=== PATIENT | male | born 1955 | race Caucasian/White ===

== ENCOUNTER 2017-07-29 21:34 | Observation (INO) | payer OTHER ==
[2017-07-29] MEDS ORDERED: LIDOCAINE 2% VISCOUS 15 ML UDCUP PO ONE (22:08)
[2017-07-29] MEDS ORDERED: MAG HYDROX/AL HYDROX/SIMETH 30 ML UDCUP PO ONE (22:08)
[2017-07-29] MEDS ORDERED: HYOSCYAMINE SULFATE 0.125 MG TAB PO ONE (22:08)
--- NOTE | 2017-07-29 22:12 | EDPHY ---
H & P Smoking Status: Never smoked Time Seen by Provider: 07/29/17 21:57 HPI/ROS: CHIEF COMPLAINT: The epigastric abdominal pain HISTORY OF PRESENT ILLNESS: The patient is history of GERD but this feels a bit different for him. He was walking the dogs and return home at 8:30 p.m. developed epigastric pain which is moderate and not relieved by Nexium or Mylanta. Has no nausea and not short of breath and was burping a little bit. Symptoms do not radiate. Not exertional. No chest pain. No vomiting or diarrhea. REVIEW OF SYSTEMS: Eye: no change in vision ENT: no sore throat Cardiac: no chest pain or syncope Pulmonary: no cough or SOB Abdomen: HPI Musculoskeletal: no back pain Skin: no rash Neuro: no headache Constitutional: no fever : no urinary symptoms A comprehensive 10 point review of systems is otherwise negative aside from elements mentioned in the history of present illness. PAST MEDICAL HISTORY: High cholesterol and GERD Social history: Nonsmoker, alcohol yesterday at his son's wedding, Dr. Zamudio his PCP. General Appearance: Alert and conversant, cooperative. Eyes: No scleral icterus. ENT, Mouth: Normal mucous membranes. Respiratory: Normal respiratory effort, breath sounds equal, lungs are clear to auscultation. Cardiovascular: Regular rate and rhythm. Gastrointestinal: Epigastric and right upper quadrant tenderness. No rebound or guarding. No McBurney's point tenderness. Neurological: Alert and oriented x3. Normally conversant. Face symmetric, normal movement and sensation in all extremities. Skin: Warm and dry, no rashes. Musculoskeletal: No peripheral edema and no joint swelling. Psychiatric: Not agitated. Emergency Department course/MDM: Plan for GI cocktail, gallbladder ultrasound, EKG, labs to include LFT and lipase. 2215: 12 lead EKG reviewed. With epigastric discomfort and mild right upper quadrant abdominal tenderness and no ischemic changes I think acute coronary syndrome would be very unlikely. 2025: Labs reviewed consistent with patient's known Gilbert's disease. 2299: Signed out to Dr. Earl with the plan for discharge if he feels better and is ultrasound is negative. If still has pain, consider further workup. (Jack Peacock) Constitutional: Initial Vital Signs Temperature (C) 36.8 C 07/29/17 21:35 Heart Rate 55 L 07/29/17 21:35 Respiratory Rate 18 07/29/17 21:35 Blood Pressure 160/88 H 07/29/17 21:35 O2 Sat (%) 97 07/29/17 21:35 O2 Delivery Mode Room Air Allergies/Adverse Reactions: No Known Allergies Allergy (Unverified 07/29/17 21:39) Home Medications: Medication Instructions Recorded Lipitor 07/29/17 Nexium 07/29/17 Medical Decision Making - Diagnostics EKG Interpretation: 12-lead EKG interpreted by me; official reading is in trace master. My interpretation is sinus rhythm rate 52 with no acute ischemic changes. (Jack Peacock) Imaging Results: Imaging Impressions Abdomen Ultrasound 07/29/17 22:09 Impression: 1. Gallbladder sludge and stones without evidence of cholecystitis. 2. Fatty enlarged liver. 3. Mild cortical thinning in the right kidney. Findings discussed with Colin Earl today at 2325 hours. ED Course/Re-evaluation: 2340: This patient was signed over to me at 11:00 p.m. shift change. Patient was pending an ultrasound right upper quadrant. The ultrasound has been performed. There is no evidence of acute cholecystitis however there is gallbladder present with sludge and multiple gallstones. I did go in to examine the patient he still has right upper quadrant abdominal pain I did order him morphine which gave him some relief but he still has reproducible pain and intermittent colicky right upper quadrant pain. This consistent with biliary colic. Given his ongoing pain I recommend admission to the hospital for pain control and for surgery to evaluate see the patient. I have consult to Dr. Maurizio Pyle with General surgery to evaluate this patient for biliary colic. Plan will be for admission for pain control possible cholecystectomy. Patient updated agrees for this plan. (Colin Earl) Differential Diagnosis: Differential diagnosis considered for abdominal pain including but not limited to acute coronary syndrome, GERD, perforated ulcer, appendicitis, cholecystitis , pancreatitis, gastritis and urinary tract infection. (Jack Peacock) - Data Points Laboratory Results: Laboratory Results 07/29/17 22:02 07/29/17 22:02 07/29/17 07/29/17 07/29/17 22:02 22:02 22:00 WBC 6.76 10^3/uL 10^3/uL (3.80-9.50) RBC 5.18 10^6/uL 10^6/uL (4.40-6.38) Hgb 16.0 g/dL g/dL (13.7-17.5) Hct 43.8 % % (40.0-51.0) MCV 84.6 fL fL (81.5-99.8) MCH 30.9 pg pg (27.9-34.1) MCHC 36.5 g/dL g/dL (32.4-36.7) RDW 12.3 % % (11.5-15.2) Plt Count 144 10^3/uL L 10^3/uL (150-400) MPV 10.1 fL fL (8.7-11.7) Neut % (Auto) 62.3 % % (39.3-74.2) Lymph % (Auto) 26.5 % % (15.0-45.0) [place] % (Auto) 7.2 % % (4.5-13.0) Eos % (Auto) 3.3 % % (0.6-7.6) Baso % (Auto) 0.3 % % (0.3-1.7) Nucleat RBC Rel Count 0.0 % % (0.0-0.2) Absolute Neuts (auto) 4.21 10^3/uL 10^3/uL (1.70-6.50) Absolute Lymphs (auto) 1.79 10^3/uL 10^3/uL (1.00-3.00) Absolute Monos (auto) 0.49 10^3/uL 10^3/uL (0.30-0.80) Absolute Eos (auto) 0.22 10^3/uL 10^3/uL (0.03-0.40) Absolute Basos (auto) 0.02 10^3/uL 10^3/uL (0.02-0.10) Absolute Nucleated RBC 0.00 10^3/uL 10^3/uL (0-0.01) Immature Gran % 0.4 % % (0.0-1.1) Immature Gran # 0.03 10^3/uL 10^3/uL (0.00-0.10) Sodium 143 mEq/L mEq/L (134-144) Potassium 3.7 mEq/L mEq/L (3.5-5.2) Chloride 106 mEq/L mEq/L (97-110) Carbon Dioxide 24 mEq/l mEq/l (22-31) Anion Gap 13 mEq/L mEq/L (8-16) BUN 13 mg/dL mg/dL (7-23) Creatinine 1.0 mg/dL mg/dL (0.7-1.3) Estimated GFR > 60 Glucose 117 mg/dL H mg/dL (70-100) Calcium 9.6 mg/dL mg/dL (8.5-10.4) Total Bilirubin 2.1 mg/dL H mg/dL (0.1-1.4) Conjugated Bilirubin 0.3 mg/dL mg/dL (0.0-0.5) Unconjugated Bilirubin 1.8 mg/dL H mg/dL (0.0-1.1) AST 34 IU/L IU/L (17-59) ALT 68 IU/L IU/L (21-72) Alkaline Phosphatase 63 IU/L IU/L (38-126) Troponin I 0.013 ng/mL ng/mL (0.000-0.034) Total Protein 7.5 g/dL g/dL (6.3-8.2) Albumin 4.5 g/dL g/dL (3.5-5.0) Lipase 71 IU/L IU/L (23-300) Medications Given: Discontinued Medications Al Hydroxide/Mg Hydroxide (Maalox Susp) 30 ml PO ONCE ONE Stop: 07/29/17 22:09 Last Admin: 07/29/17 22:22 Dose: 30 ml Hyoscyamine Sulfate (Levsin, Hyomax-Sl) 0.25 mg PO ONCE ONE Stop: 07/29/17 22:09 Last Admin: 07/29/17 22:22 Dose: 0.25 mg Lidocaine (Lidocaine 2% Viscous) 15 ml PO ONCE ONE Stop: 07/29/17 22:09 Last Admin: 07/29/17 22:22 Dose: 15 ml Morphine Sulfate (Morphine) 4 mg IVP EDNOW ONE Stop: 07/29/17 23:17 Last Admin: 07/29/17 23:19 Dose: 4 mg Departure - Departure Disposition: [facility] Acute Clinical Impression: Biliary colic Gallstone Qualifiers: Cholecystitis presence: without cholecystitis Biliary obstruction: without biliary obstruction Qualified Code(s): K80.20 - Calculus of gallbladder without cholecystitis without obstruction Condition: Fair Referrals: Mickey Zamudio DO [Primary Care Provider] - As per Instructions
[2017-07-29 22:14] LABS: % IMMATURE GRANULYOCYTES 0.4 % (0.0-1.1); ABSOLUTE IMMATURE GRANULOCYTES 0.03 10^3/uL (0.00-0.10); ADD DIFF? NO; ADD MORPH? NO; ADD SCAN? NO; ATYPICAL LYMPHOCYTE FLAG 0 (0-99); FRAGMENT RBC FLAG 0 (0-99); HEMATOCRIT 43.8 % (40.0-51.0); LEFT SHIFT FLG 0 (0-99); LIPEMIA HEMOLYSIS FLAG 90 (0-99); MEAN CELL HEMOGLOBIN 30.9 pg (27.9-34.1); MEAN CELL HEMOGLOBIN CONCENTR. 36.5 g/dL (32.4-36.7); MEAN CELL VOLUME 84.6 fL (81.5-99.8); MEAN PLATELET VOLUME 10.1 fL (8.7-11.7); PLATELET CLUMPS FLAG 0 (0-99); PLATELET COUNT 144 10^3/uL (150-400); RED BLOOD CELL COUNT 5.18 10^6/uL (4.40-6.38); RED CELL DISTRIBUTION WIDTH 12.3 % (11.5-15.2)
--- NOTE | 2017-07-29 22:15 | CPEKG ---
Heart Rate: 52 RR Interval: 1154 P-R Interval: 184 QRSD Interval: 88 QT Interval: 456 QTC Interval: 424 P Diller: 72 QRS Diller: 82 T Wave Diller: 25 EKG Severity - OTHERWISE NORMAL ECG - EKG Impression: SINUS RHYTHM EKG Impression: BORDERLINE RIGHT AXIS DEVIATION Electronically Signed By: Jack Peacock 29-Jul-2017 22:16:54
[2017-07-29 22:20] LABS: ALANINE AMINOTRANSFERASE 68 IU/L (21-72); ALBUMIN 4.5 g/dL (3.5-5.0); ALKALINE PHOSPHATASE 63 IU/L (38-126); ANION GAP 13 mEq/L (8-16); ASPARTATE AMINOTRANSFERASE 34 IU/L (17-59); BILIRUBIN,TOTAL 2.1 mg/dL (0.1-1.4); BILIRUBIN-CONJUGATED 0.3 mg/dL (0.0-0.5); BILIRUBIN-UNCONJUGATED 1.8 mg/dL (0.0-1.1); CALCIUM 9.6 mg/dL (8.5-10.4); CARBON DIOXIDE 24 mEq/l (22-31); CHLORIDE 106 mEq/L (97-110); GLOMERULAR FILTRATION RATE > 60; GLUCOSE 117 mg/dL (70-100); POTASSIUM 3.7 mEq/L (3.5-5.2); SODIUM 143 mEq/L (134-144); TOTAL PROTEIN 7.5 g/dL (6.3-8.2)
[2017-07-30] MEDS ORDERED: LR 1,000 ML IV SCH (00:30)
--- NOTE | 2017-07-30 00:43 | PDGENHP ---
History and Physical - Chief Complaint Abd pain - History of Present Illness 62 y/o male with gradual onset of abdominal pain this afternoon after eating a late lunch of sausage and potatoes. The pain became worse and he came to the ED for evaluation. An ECG and Troponin were normal. An abdominal ultrasound showed sludge and gallstones without GB wall thickening. Surgical Consult was requested. He continues to have pain despite receiving intravenous Morphine. He denies nausea, vomiting, diarrhea History Information - Allergies/Home Medication List Allergies/Adverse Reactions: No Known Allergies Allergy (Unverified 07/29/17 21:39) Home Medications: Lipitor 07/29/17 [Last Taken Unknown] Nexium 07/29/17 [Last Taken Unknown] I have personally reviewed and updated: family history, medical history, social history, surgical history - Past Medical History GERD, hyperlipidemia - Surgical History Reports: appendectomy - Social History Smoking Status: Never smoked Alcohol Use: Rarely Drug Use: None Additional social history: and accompanied by his /works at [employer]/ physically active exercises frequently Review of Systems Review of Systems: Constitutional: Reports: no symptoms Cardiac: Reports: no symptoms Respiratory: Reports: no symptoms Gastrointestinal: Reports: abdominal pain, abdominal distention Genitourinary: Reports: no symptoms Muscolosketal: Reports: no symptoms Skin: Reports: no symptoms Neurological: Reports: no symptoms Hematologic/Lymphatic: Reports: no symptoms Immunologic/Allergy: Reports: no symptoms Physical Exam Physical Exam: Temp Pulse Resp BP Pulse Ox 36.8 C 54 L 16 146/79 H 94 07/29/17 23:58 07/29/17 23:58 07/29/17 23:58 07/29/17 23:58 07/29/17 23:58 Constitutional: other (WDWN male in mild distress) Eyes: anicteric sclera Ears, Nose, Mouth, Throat: dry mucous membranes Cardiovascular: regular rate and rhythym, systolic murmur Respiratory: no respiratory distress, clear to auscultation Gastrointestinal: tenderness (RUQ/epigastric, negative Stover's), other (no hepatosplenomegaly) Genitourinary: no bladder fullness Skin: warm, normal color Neurologic: AAOx3 Psychiatric: interacting appropriately Lymph, Heme, Immunologic: no cervical LAD, no supraclavicular LAD Lab Data & Imaging Review 07/29/17 22:02 07/29/17 22:02 WBC 6.76 10^3/uL (3.80-9.50) 07/29/17 22: RBC 5.18 10^6/uL (4.40-6.38) 07/29/17 22:02 Hgb 16.0 g/dL (13.7-17.5) 07/29/17 22:02 Hct 43.8 % (40.0-51.0) 07/29/17 22:02 MCV 84.6 fL (81.5-99.8) 07/29/17 22: MCH 30.9 pg (27.9-34.1) 07/29/17 22: MCHC 36.5 g/dL (32.4-36.7) 07/29/17: RDW 12.3 % (11.5-15.2) 07/29/17: Plt Count 144 10^3/uL (150-400) L 07/29/17 22: MPV 10.1 fL (8.7-11.7) 07/29/17 22:02 Neut % (Auto) 62.3 % (39.3-74.2) 07/29/17 22: Lymph % (Auto) 26.5 % (15.0-45.0) 07/29/17 22:02 [place] % (Auto) 7.2 % (4.5-13.0) 07/29/17 22:02 Eos % (Auto) 3.3 % (0.6-7.6) 07/29/17 22: Baso % (Auto) 0.3 % (0.3-1.7) 07/29/17 22: Nucleat RBC Rel Count 0.0 % (0.0-0.2) 07/29/17 22:02 Absolute Neuts (auto) 4.21 10^3/uL (1.70-6.50) 07/29/17 22: Absolute Lymphs (auto) 1.79 10^3/uL (1.00-3.00) 07/29/17 22:02 Absolute Monos (auto) 0.49 10^3/uL (0.30-0.80) 07/29/17 22:02 Absolute Eos (auto) 0.22 10^3/uL (0.03-0.40) 07/29/17 22:02 Absolute Basos (auto) 0.02 10^3/uL (0.02-0.10) 07/29/17 22:02 Absolute Nucleated RBC 0.00 10^3/uL (0-0.01) 07/29/17 22:02 Immature Gran % 0.4 % (0.0-1.1) 07/29/17 22:02 Immature Gran # 0.03 10^3/uL (0.00-0.10) 07/29/17 22:02 Sodium 143 mEq/L (134-144) 07/29/17 22:02 Potassium 3.7 mEq/L (3.5-5.2) 07/29/17 22:02 Chloride 106 mEq/L (97-110) 07/29/17 22:02 Carbon Dioxide 24 mEq/l (22-31) 07/29/17 22:02 Anion Gap 13 mEq/L (8-16) 07/29/17 22:02 BUN 13 mg/dL (7-23) 07/29/17 22:02 Creatinine 1.0 mg/dL (0.7-1.3) 07/29/17 22:02 Estimated GFR > 60 07/29/17 22:02 Glucose 117 mg/dL (70-100) H 07/29/17 22:02 Calcium 9.6 mg/dL (8.5-10.4) 07/29/17 22:02 Total Bilirubin 2.1 mg/dL (0.1-1.4) H 07/29/17 22:02 Conjugated Bilirubin 0.3 mg/dL (0.0-0.5) 07/29/17 22:02 Unconjugated Bilirubin 1.8 mg/dL (0.0-1.1) H 07/29/17 22:02 AST 34 IU/L (17-59) 07/29/17 22:02 ALT 68 IU/L (21-72) 07/29/17 22:02 Alkaline Phosphatase 63 IU/L (38-126) 07/29/17 22:02 Troponin I 0.013 ng/mL (0.000-0.034) 07/29/17 22:00 Total Protein 7.5 g/dL (6.3-8.2) 07/29/17 22:02 Albumin 4.5 g/dL (3.5-5.0) 07/29/17 22:02 Lipase 71 IU/L (23-300) 07/29/17 22:02 Visualized and Interpreted imaging results: Yes Interpretation: GB distended without wall thickening/no significant shadowing to suggest stones/biliary sludge. some motion artifact and resolution artifact Assessment & Plan Assessment: Upper abdominal pain with probable biliary colic, though gallbladder ultrasound is not convincing Gilbert's syndrome Plan: I recommended confirming cystic duct obstruction with HIDA scan, which I would order for this morning. If cystic duct obstruction is confirmed I would recommend proceeding with lap cholecystectomy If the HIDA scan is normal I would recommend further work-up with EGD vs. UGI I discussed with Mr. Grady and his the pathophysiology of biliary tract disease and reviewed his ultrasound images with him in the course of a 45 minute face to face consultation more than half of the time spent in counseling. Cathie Pyle MD, FACS
[2017-07-30] MEDS: PANTOPRAZOLE SODIUM 40 MG in NS 100 ML IV SCH ×3 (01:03→20:25)
[2017-07-30 04:21] LABS: % IMMATURE GRANULYOCYTES 0.4 % (0.0-1.1); ABSOLUTE IMMATURE GRANULOCYTES 0.04 10^3/uL (0.00-0.10); ADD DIFF? NO; ADD MORPH? NO; ADD SCAN? NO; ATYPICAL LYMPHOCYTE FLAG 0 (0-99); FRAGMENT RBC FLAG 0 (0-99); HEMATOCRIT 41.4 % (40.0-51.0); HEMOGLOBIN 15.2 g/dL (13.7-17.5); LEFT SHIFT FLG 0 (0-99); LIPEMIA HEMOLYSIS FLAG 90 (0-99); MEAN CELL HEMOGLOBIN 30.8 pg (27.9-34.1); MEAN CELL HEMOGLOBIN CONCENTR. 36.7 g/dL (32.4-36.7); MEAN CELL VOLUME 83.8 fL (81.5-99.8); MEAN PLATELET VOLUME 10.1 fL (8.7-11.7); PLATELET CLUMPS FLAG 10 (0-99); PLATELET COUNT 140 10^3/uL (150-400); RED BLOOD CELL COUNT 4.94 10^6/uL (4.40-6.38); RED CELL DISTRIBUTION WIDTH 12.5 % (11.5-15.2)
[2017-07-30 04:38] LABS: ALANINE AMINOTRANSFERASE 61 IU/L (21-72); ALBUMIN 4.1 g/dL (3.5-5.0); ALKALINE PHOSPHATASE 57 IU/L (38-126); AMYLASE 37 IU/L (30-110); ASPARTATE AMINOTRANSFERASE 33 IU/L (17-59); BILIRUBIN,TOTAL 2.1 mg/dL (0.1-1.4); BILIRUBIN-CONJUGATED 0.3 mg/dL (0.0-0.5); BILIRUBIN-UNCONJUGATED 1.8 mg/dL (0.0-1.1); TOTAL PROTEIN 6.8 g/dL (6.3-8.2)
--- NOTE | 2017-07-30 09:11 | SOAPPROG ---
[facility] Progress Note Assessment/Plan: Assessment: admitted for abdominal pain US with sludge LFTS within normal limits with exception of high indirect bilirubin WBC up today Feels much improved Will await DINORAH S: Much improved O: abdomen soft and non tender Plan: 07/30/17 09:10 Objective: Vital Signs Temp Pulse Resp BP Pulse Ox 36.6 C 62 16 134/82 H 94 07/30/17 08:53 07/30/17 08:53 07/30/17 08:53 07/30/17 08:53 07/30/17 08:53 Laboratory Results 07/30/17 04:11 ICD10 Worksheet Patient Problems: Problems Problem Status Onset Biliary colic Acute Gallstone Acute
--- NOTE | 2017-07-30 11:14 | ASMTCASEMG ---
Living Arrangements What is your living Answers: With Spouse arrangement? Who do you live with? Type Of Residence What kind of residence do Answers: House you live in? Discharge Plan Comments Coordination Status Comments Notes: Pt is a 62 y/o man admitted w/ abdominal pain. Ultrasound showed sludge and gallstones. Pt may have surgery to remove gallstones. Anticipates that pt will d/c independent with supportive . CM available for d/c needs, should they arise. No therapies ordered at this time. Date Signed: 07/30/2017 11:13 AM Electronically Signed By:ANA Lundberg
[2017-07-30] MEDS ORDERED: ceFAZolin 2 GM/DEXTROSE 100 ML IV ONE (13:09)
[2017-07-30] MEDS ORDERED: BUPIVACAINE 0.5% 30 ML SDV ONE (13:17)
[2017-07-30] MEDS ORDERED: MIDAZOLAM 2 MG/2 ML VIAL IVP ONE (13:32)
--- NOTE | 2017-07-30 13:36 | PDANEPAE ---
ANE History of Present Illness cholecystitis s/f lap juarez ANE Past Medical History - Cardiovascular History Hx Arrhythmias: No Hx Chest Pain: No Hx Coronary Artery / Peripheral Vascular Disease: No Cardiovascular History Comment: dyslipidemia - Pulmonary History Hx Oxygen in Use at Home: No Hx Sleep Apnea: No - Endocrine History Hx Diabetes: No - Liver History Hx Hepatic Disorders: Yes Hepatic History Comment: Zaira Vasquez. - Chronic Pain History Chronic Pain: Yes ANE Review of Systems Review of Systems: - Exercise capacity Exercise capacity: >=4 METS ANE Patient History - Allergies Allergies/Adverse Reactions: No Known Allergies Allergy (Unverified 07/29/17 21:39) - Home Medications Home medications: home medication list seen and reviewed Home Medications: Atorvastatin Calcium [Lipitor 20 mg (*)] 20 mg PO DAILY 07/30/17 [Last Taken ] Esomeprazole Magnesium [Esomeprazole Magnesium] 40 mg PO DAILY 07/30/17 [Last Taken 07/29/17] - NPO status NPO Status: no food or drink >8 hours - Anes Hx Anes Hx: no prior problems - Smoking Hx Smoking Status: Never smoked - Alcohol Use Alcohol Use: Rarely - Family Anes Hx Family Anes Hx: none ANE Labs/Vital Signs - Labs Result Diagrams: 07/30/17 04:11 07/29/17 22:02 - Vital Signs Blood Pressure: 130/80 Heart Rate: 64 Respiratory Rate: 16 O2 Sat (%): 95 Height: 155.45 m Weight: 79.379 kg ANE Physical Exam - Airway Neck exam: FROM Mallampati Score: Class 1 Mouth exam: normal dental/mouth exam - Pulmonary Pulmonary: no respiratory distress ANE Anesthesia Plan Anesthesia Plan: general endotracheal anesthesia (R/B/A explained and patient agrees to proceed)
[2017-07-30] MEDS ORDERED: MIDAZOLAM 2 MG/2 ML VIAL ONE (13:54)
[2017-07-30] MEDS ORDERED: CEFAZOLIN 2 GM/DEXTROSE/100 ML BAG IV ONE (13:56)
[2017-07-30] MEDS ORDERED: fentaNYL 100 MCG/2 ML INJ ONE ×2 (14:06→15:54)
[2017-07-30] MEDS ORDERED: DEXAMETHASONE 4 MG/ML VIAL ONE ×2 (14:07)
[2017-07-30] MEDS ORDERED: ROCURONIUM 100 MG/10 ML VIAL ONE (14:07)
[2017-07-30] MEDS ORDERED: PROPOFOL/EMULSION 500 MG/50 ML BOTTLE IV ONE (14:07)
[2017-07-30] MEDS ORDERED: LIDOCAINE 2% 100 MG/5 ML SYR ONE (14:08)
[2017-07-30] MEDS ORDERED: ONDANSETRON 4 MG/2 ML VIAL ONE (14:08)
[2017-07-30] MEDS ORDERED: LIDOCAINE HCL 160 MG/4 ML LTA KIT TP ONE (14:12)
[2017-07-30] MEDS ORDERED: SUGAMMADEX SODIUM 200 MG/2 ML VIAL IVP ONE (15:11)
[2017-07-30] MEDS ORDERED: KETOROLAC 30 MG/1 ML SDV ONE (15:11)
[2017-07-30] MEDS ORDERED: HYDROCODONE/APAP 5/325 TAB PO PRN ×2 (15:25→15:31)
--- NOTE | 2017-07-30 15:29 | POSTOPPROG ---
Post Op Note Date of Operation: 07/30/17 Surgeon: Danielle Muro Anesthesiologist: carole Anesthesia: GET(General Endotracheal) Pre-op Diagnosis: acute calculous cholecystitis Post-op Diagnosis: same Indication: 62 yo with acute juarez Procedure: lap juarez Findings: inflamed gallbladder Inf/Abcess present in the surg proc area at time of surgery?: No Depth: Superfical (Skin SQ) EBL: Minimal Specimen(s): gallbladder
[2017-07-30] MEDS ORDERED: PROMETHAZINE HCL 25 MG/ML INJ IVP PRN (15:31)
[2017-07-30] MEDS ORDERED: NALOXONE HCL 0.4 MG/ML INJ IVP PRN (15:31)
[2017-07-30] MEDS ORDERED: LR 500 ML IV PRN (15:31)
[2017-07-30] MEDS ORDERED: MEPERIDINE 25 MG/ML SYR IVP PRN (15:31)
[2017-07-30] MEDS ORDERED: fentaNYL 100 MCG/2 ML INJ IVP PRN (15:31)
[2017-07-30] MEDS ORDERED: ACETAMINOPHEN 500 MG TAB PO PRN (15:31)
[2017-07-30] MEDS ORDERED: ONDANSETRON 4 MG/2 ML VIAL IVP PRN (15:31)
[2017-07-30] MEDS ORDERED: DEXAMETHASONE 4 MG/ML VIAL IVP PRN (15:31)
[2017-07-30] MEDS ORDERED: LABETALOL HCL 50 MG/10 ML SYR IVP PRN (15:31)
[2017-07-30] MEDS ORDERED: ALBUTEROL 3 ML DEYVIAL IH PRN (15:31)
[2017-07-30] MEDS ORDERED: METOCLOPRAMIDE 10 MG/2 ML VIAL IVP PRN (15:31)
[2017-07-30] MEDS ORDERED: OXYCODONE/APAP 5/325 TAB PO PRN (15:31)
--- NOTE | 2017-07-30 15:40 | POSTANESTH ---
Post Anesthetic Evaluation Cardiovascular Status: Normal, Stable Respiratory Status: Normal, Stable Level of Consciousness/Mental Status: Can Participate in Eval Pain Control: Adequate, Prn Tx Ordered Nausea/Vomiting Control: Adequate, Prn Tx Ordered Complications Possibly Related to Anesthesia: None Noted
--- NOTE | 2017-07-30 17:34 | GOP ---
[f rep st] OPERATIVE REPORT DATE OF OPERATION: 07/30/2017 SURGEON: Danielle Muro MD ANESTHESIA: General. ANESTHESIOLOGIST: Joey Mendosa MD PREOPERATIVE DIAGNOSIS: Cholecystitis. POSTOPERATIVE DIAGNOSIS: Acute calculous cholecystitis. PROCEDURE PERFORMED: Laparoscopic cholecystectomy. FINDINGS: The gallbladder was inflamed and intrahepatic. SPECIMENS: Gallbladder. ESTIMATED BLOOD LOSS: 10 cc. INDICATIONS: The patient is a 62-year-old, who presented with vague pain that progressed to right up per quadrant pain. HIDA scan did not fill after 2.5 hours. DESCRIPTION OF PROCEDURE: The patient was brought into the operating room, placed supine on the tabl e, and general anesthesia was administered. His abdomen was prepped and draped in the usual sterile fashion. I infiltrated all sites with 0.5% Marcaine prior to making incision. I elevated his umbili cus, made an incision, inserted the Veress needle, and passed the hanging drop test. His abdomen ins ufflated easily to a pressure of 15 mmHg. Under direct vision, I placed a 5 mm trocar with a camera at this site. Under direct vision I placed a 10 mm subxiphoid trocar and two 5 mm trocars along the right costal margin. I lifted his gallbladder cephalad, but it was very tense. I then used a needle to aspirate thick bile from the gallbladder. I then could lift the gallbladder cephalad and lateral ly to expose the triangle of Calot. I used suction irrigation to retract back the inflamed omentum t hat was covering the triangle. I skeletonized the cystic artery and cystic duct so that they were th e only 2 structures directly entering the gallbladder. I doubly clipped each structure distally, sin gly clipped them toward the gallbladder and transected them with scissors. On inspection, the clips just went around the cystic duct. I then placed an 0 PDS Endoloop. Removed the gallbladder from the gallbladder fossa; it was intrahepatic and had to peel the back wall. The gallbladder was removed, placed in an EndoCatch bag, and passed off the field. Hemostasis achieved on the liver bed with elec trocautery. Suction irrigation performed. Cally placed. The ports were removed under direct visio n. The abdomen was allowed to desufflate. The fascia at the 10 mm trocar site was closed with 0 Eric ryl. Skin closed with 4-0 Monocryl. Dermabond applied. He was awakened in the operating room, extu bated, and transferred to PACU in stable condition. /[id number]/MODL
[2017-07-30 19:23] VITALS: RESP 16
[2017-07-31 04:29] VITALS: O2SAT 92
[2017-07-31 07:33] VITALS: BP 128/73; PULSE 54; TEMP 98.2
--- NOTE | 2017-07-31 09:49 | SOAPPROG ---
SOAP Progress Note Assessment/Plan: Assessment: 62yo M POD31 s/p lap juarez for acute calculous cholecystitis Pain well controlled Tolerating regular diet Passing flatus Dispo: D/C home today. work note and rx in chart. f/u 2 weeks. low fat diet x 2 weeks S: feeling well this morning, walked for over an hour. pain controlled. no nausea. ate full breakfast O: Sitting upright in bed, comfortable, no acute distress No increased work of breathing Normal bowel sounds throughout, soft, nondistended, nontender. Incisions clean , dry and intact without evidence of infection Objective: Vital Signs Temp Pulse Resp BP Pulse Ox 36.8 C 54 L 16 128/73 H 92 07/31/17 07:31 07/31/17 07:31 07/31/17 07:31 07/31/17 07:31 07/31/17 07:31 Laboratory Results 07/30/17 04:11 07/30/17 07/31/17 08/01/17 05:59 05:59 05:59 Intake Total 900 Output Total 275 Balance 625 ICD10 Worksheet Patient Problems: Problems Problem Status Onset Biliary colic Acute Gallstone Acute
[2017-07-31] MEDS: PANTOPRAZOLE SODIUM 40 MG in NS 100 ML IV SCH (09:50)
--- NOTE | 2017-07-31 10:33 | GDS ---
[f rep st] DISCHARGE SUMMARY ADMITTING DIAGNOSIS: Acute calculus cholecystitis. SECONDARY DIAGNOSES: Hyperlipidemia, GERD. REASON FOR ADMISSION: The patient is a 62-year-old man who had gradual onset abdominal pain, was fou nd to have gallstones, and HIDA scan showed a nonfilling gallbladder. He was admitted for surgical i ntervention, pain control, and observation. HOSPITAL COURSE: He was taken to the operating room on 07/30/[address] Danielle Muro for laparoscopi c cholecystectomy. He had an unremarkable postop course. By postop day #1, his pain was well contro lled, tolerating regular diet, ambulating independently, and was ready for discharge. CONDITION: Being discharged home in stable condition. Pain is well controlled with oral pain medica tion. He is tolerating a regular diet and ambulating independently. DISCHARGE MEDICATIONS: He was provided a prescription for Henry and instructed to resume home medica tions. Please see EMR for further detail. DISCHARGE INSTRUCTIONS AND FOLLOWUP: He will follow up with Dr. Danielle Muro or Kelly Gerardo PA-C, in 2 weeks. He will follow a low-fat diet for 2 weeks. He understands to avoid heavy lifting, pushi ng, or pulling greater than 20 pounds for 2 weeks. A work excuse was provided. He understands to ca ll our office with any worsening symptoms, questions, or concerns. /[id number]/MODL
--- NOTE | 2017-07-31 11:15 | ASMTCMCOM ---
CM Note CM Note Notes: Patient discharging home with no additional Case management needs apparent at this time. Date Signed: 07/31/2017 11:14 AM Electronically Signed By:COLLIN Sutton
== END 2017-07-31 11:34 | disposition home or self-care (01) ==
LOC: INTOOBSV 23:39 → F1N 07-30 00:40
PROVIDERS: ADMIT Surgery; ATTEND Surgery
PROC: 0FT44ZZ Resection of Gallbladder, Percutaneous Endoscopic Approach (ICD-10-PCS; principal; 2017-07-29)
DX: K80.12 Calculus of gallbladder with acute and chronic cholecystitis without obstruction (principal); E78.5 Hyperlipidemia, unspecified; K21.9 Gastro-esophageal reflux disease without esophagitis
CPT/HCPCS: 47562; 76705; 78226; 93005; A9537; G0378; 96374; J0690; J1100; J1885; J2001; J2250; J2405; J2704; J3010